=== PATIENT | female | born 1965 | race Caucasian/White ===

== ENCOUNTER 2024-01-03 07:29 | Outpatient (REF) | payer MEDICARE, MEDICAID, SELFPAY ==
--- NOTE | ~2024-01-03 | XR_ITS ---
EXAMINATION: XR SHOULDER, LEFT CLINICAL INFORMATION: Pain COMPARISON: None available. TECHNIQUE: Two views of the left shoulder. FINDINGS: Visualized portion of proximal left humerus demonstrate no fracture. Humeral head demonstrates good articulation the glenoid fossa. There is a large osteophyte off the inferomedial humeral head. The acromioclavicular joint is unremarkable. Visualized left-sided ribs and lung parenchyma are unremarkable. 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
== END 2024-01-03 07:30 | disposition home or self-care (01) ==
LOC: HO.HOSX 07:29
PROVIDERS: Visit Provider Orthopaedic Surgery
DX: M25.512 Pain in left shoulder (principal)
CPT/HCPCS: 73030; J1020